=== PATIENT | male | born 1965 | race Caucasian/White ===

== ENCOUNTER 2022-03-08 10:21 | Inpatient (IN) | payer OTHER ==
[~2022-03-08] VITALS: Ht 180.3 cm; Wt 90.9 kg
[2022-03-08 12:47] LABS: COVID AG,FIA SOURCE NASOPHARYNGEAL
[2022-03-08 13:15] LABS: BASOPHILS % (AUTO) 0.8 % (0.0-2.0); HEMATOCRIT 46.9 % (41-53); HEMOGLOBIN 16.1 g/dL (13.5-17.5); LYMPHOCYTES # (AUTO) 1.2 K/uL (1.0-4.8); LYMPHOCYTES % (AUTO) 16.4 % (22.0-44.0); MEAN CORPUSCULAR HEMOGLOBIN 31.2 pg (26.0-34.0); MEAN CORPUSCULAR HGB CONC 34.4 G/dL (31.0-37.0); MEAN CORPUSCULAR VOLUME 91 fL (80-100); MONOCYTES # (AUTO) 0.5 K/uL (0.1-1.0); MONOCYTES % (AUTO) 6.3 % (2.0-9.0); NEUTROPHILS # (AUTO) 5.7 K/uL (1.8-7.7); NEUTROPHILS % (AUTO) 75.5 % (40.0-70.0); PLATELET COUNT (AUTO) 237 K/uL (150-450); RED BLOOD CELL COUNT(AUTO) 5.18 MIL/uL (4.50-5.90); RED CELL DISTRIBUTION WIDTH 13.4 % (11.5-14.5)
[2022-03-08 13:16] LABS: AMPHET/METH SCREEN,URINE POSITIVE (NEGATIVE); BARBITURATE SCREEN, URINE NEGATIVE (NEGATIVE); BENZODIAZEPINES SCREEN,URINE NEGATIVE (NEGATIVE); CANNABINOID SCREEN,URINE POSITIVE (NEGATIVE); COCAINE SCREEN,URINE NEGATIVE (NEGATIVE); METHADONE SCREEN, URINE NEGATIVE (NEGATIVE); OPIATE SCREEN,URINE NEGATIVE (NEGATIVE)
[2022-03-08 13:17] LABS: PHENCYCLIDINE SCREEN,URINE NEGATIVE (NEGATIVE)
[2022-03-08 13:22] LABS: ANION GAP 6 mmol/L (8-16); CALCIUM, TOTAL 9.2 mg/dL (8.8-10.5); CARBON DIOXIDE 31 mmol/L (22-29); CHLORIDE 100 mmol/L (98-107); CREATININE 0.75 mg/dL (0.60-1.30); GLOMERULAR FILTR. RATE CALC > 60 mL/min (>60); GLUCOSE,RANDOM 121 mg/dL (70-110); POTASSIUM 4.7 mmol/L (3.5-5.1); SODIUM SERUM 137 mmol/L (136-145); UREA NITROGEN, BLOOD 10 mg/dL (7-18)
[2022-03-08 13:28] LABS: ALANINE AMINOTRANSFERASE 107 U/L (12-78); ALBUMIN 3.7 g/dL (3.4-5.0); ALKALINE PHOSPHATASE 70 U/L (46-116); ASPARTATE AMINOTRANSFERASE 55 U/L (15-37); BILIRUBIN,TOTAL 0.5 mg/dL (0.1-1.0); TOTAL PROTEIN, SERUM 8.1 g/dL (6.4-8.2)
[2022-03-08] MEDS ORDERED: SODIUM CHLORIDE 0.9% 1,000 ML IV ONE (14:45)
[2022-03-08 18:12] VITALS: BP 148/84
[2022-03-08 20:00] VITALS: BP 156/85
[2022-03-08 20:31] VITALS: BP 156/85
[2022-03-08] MEDS ORDERED: ALBUTEROL SULFATE 2.5 MG/0.5 ML NEB SOLUTION NEB PRN (22:15)
[2022-03-08] MEDS ORDERED: MORPHINE SULFATE 2 MG/ML SYRINGE IVP PRN (22:15)
[2022-03-08] MEDS ORDERED: ONDANSETRON HCL 4 MG/2 ML VIAL IVP PRN (22:15)
[2022-03-08] MEDS ORDERED: HYDROCODONE/ACETAMINOPHEN 5-325 MG TABLET PO PRN (22:15)
[2022-03-08] MEDS ORDERED: MAGNESIUM HYDROXIDE SUSPENSION 30 ML UDCUP PO PRN (22:15)
[2022-03-08] MEDS ORDERED: LORazepam 2 MG TABLET PO PRN (22:15)
[2022-03-08] MEDS ORDERED: ZOLPIDEM TARTRATE 5 MG TABLET PO PRN (22:15)
[2022-03-08] MEDS ORDERED: SODIUM CHLORIDE 0.45% 1,000 ML IV SCH (22:15)
[2022-03-08] MEDS ORDERED: IPRATROPIUM BROMIDE 0.5 MG/2.5 ML NEB SOLUTION NEB PRN (22:15)
[2022-03-08] MEDS ORDERED: BISACODYL 10 MG RECTAL RECTAL SUPPOSITORY PR PRN (22:15)
[2022-03-08 23:53] VITALS: BP 141/85
[2022-03-08] MEDS: HEPARIN SODIUM,PORCINE 5,000 UNITS/ML VIAL SQ SCH (23:54)
[2022-03-09] VITALS: BP 146/85
[2022-03-09] MEDS: 1: MAGNESIUM SULFATE 2 GM, MVI, ADULT NO.1 WITH VIT K 10 ML, THIAMINE 100 MG, FOLIC ACID IV SCH ×15 (00:17→20:43)
[2022-03-09 04:59] VITALS: BP 149/86
[2022-03-09] MEDS ORDERED: LORazepam 2 MG TABLET PO PRN (07:00)
[2022-03-09 08:10] VITALS: BP 143/87
[2022-03-09] MEDS: THIAMINE 100 MG TABLET PO SCH (08:49)
[2022-03-09] MEDS: LORazepam 2 MG TABLET PO SCH ×4 (08:49→20:43)
[2022-03-09] MEDS: DOCUSATE SODIUM 100 MG CAPSULE PO SCH ×2 (08:49→20:43)
[2022-03-09] MEDS: HEPARIN SODIUM,PORCINE 5,000 UNITS/ML VIAL SQ SCH ×3 (08:49→23:56)
[2022-03-09] MEDS: PANTOPRAZOLE SODIUM 40 MG/VIAL IVP SCH (08:50)
[2022-03-09 12:24] VITALS: BP 140/87
[2022-03-09 16:00] VITALS: BP 144/86
[2022-03-09 19:50] VITALS: BP 128/77
[2022-03-10 04:18] VITALS: BP 136/90
[2022-03-10] MEDS: 1: MAGNESIUM SULFATE 2 GM, MVI, ADULT NO.1 WITH VIT K 10 ML, THIAMINE 100 MG, FOLIC ACID IV SCH ×5 (06:43)
[2022-03-10 08:02] VITALS: BP 134/77
[2022-03-10] MEDS: DOCUSATE SODIUM 100 MG CAPSULE PO SCH ×2 (08:26→23:29)
[2022-03-10] MEDS: THIAMINE 100 MG TABLET PO SCH (08:26)
[2022-03-10] MEDS: HEPARIN SODIUM,PORCINE 5,000 UNITS/ML VIAL SQ SCH ×3 (08:26→23:30)
[2022-03-10] MEDS: PANTOPRAZOLE SODIUM 40 MG/VIAL IVP SCH (08:26)
[2022-03-10] MEDS: LORazepam 2 MG TABLET PO SCH (08:27)
[2022-03-10] MEDS: ACETAMINOPHEN 325 MG TABLET PO PRN (13:48)
[2022-03-10 15:31] VITALS: BP 135/85
[2022-03-10 20:44] VITALS: BP 124/82
[2022-03-11 04:46] VITALS: BP 117/75
[2022-03-11] MEDS ORDERED: LORazepam 1 MG TABLET PO PRN (07:00)
[2022-03-11 08:07] VITALS: BP 137/91
[2022-03-11] MEDS ORDERED: LORazepam 1 MG TABLET PO SCH (09:00)
[2022-03-11] MEDS: THIAMINE 100 MG TABLET PO SCH (09:19)
[2022-03-11] MEDS: DOCUSATE SODIUM 100 MG CAPSULE PO SCH ×2 (09:20→20:24)
[2022-03-11] MEDS: PANTOPRAZOLE SODIUM 40 MG/VIAL IVP SCH (09:20)
[2022-03-11] MEDS: HEPARIN SODIUM,PORCINE 5,000 UNITS/ML VIAL SQ SCH ×3 (09:20→23:26)
[2022-03-11] MEDS ORDERED: ACET-784 PO (10:48)
[2022-03-11] MEDS: ACETAMINOPHEN 325 MG TABLET PO PRN ×2 (14:00→20:24)
[2022-03-11 16:06] VITALS: BP 140/96
[2022-03-11 19:35] VITALS: BP 135/92
[2022-03-12 04:09] VITALS: BP 139/86
[2022-03-12] MEDS ORDERED: LORazepam 1 MG TABLET PO PRN (07:00)
== END 2022-03-12 07:00 | DRG 433 ==
LOC: EMS 10:21 → 6S 16:59
PROVIDERS: ADMIT Hospitalist; ATTEND Hospitalist
DX: K70.9 Alcoholic liver disease, unspecified (principal); F10.239 Alcohol dependence with withdrawal, unspecified; Z87.891 Personal history of nicotine dependence; Z20.822 Contact with and (suspected) exposure to COVID-19
CPT/HCPCS: 80053; 85025; 99285; C9113; G0480; J1644; J3411; J3475; J3490; J7030

== ENCOUNTER 2022-03-14 15:45 | Inpatient (IN) | payer OTHER ==
[~2022-03-14] VITALS: Ht 180.3 cm; Wt 85.0 kg
[~2022-03-14 15:45] MED LIST: ACET-784 PO
[2022-03-14] MEDS ORDERED: ONDANSETRON HCL 4 MG/2 ML VIAL IVP ONE (16:15)
[2022-03-14] MEDS ORDERED: SODIUM CHLORIDE 0.9% 1,000 ML IV ONE ×2 (16:15→20:45)
[2022-03-14 16:44] LABS: BASOPHILS % (AUTO) 0.7 % (0.0-2.0); EOSINOPHILS % (AUTO) 1.9 % (1.0-6.0); HEMATOCRIT 46.3 % (41-53); HEMOGLOBIN 15.6 g/dL (13.5-17.5); LYMPHOCYTES # (AUTO) 1.7 K/uL (1.0-4.8); LYMPHOCYTES % (AUTO) 21.9 % (22.0-44.0); MEAN CORPUSCULAR HEMOGLOBIN 30.9 pg (26.0-34.0); MEAN CORPUSCULAR HGB CONC 33.7 G/dL (31.0-37.0); MEAN CORPUSCULAR VOLUME 92 fL (80-100); MONOCYTES # (AUTO) 0.8 K/uL (0.1-1.0); MONOCYTES % (AUTO) 9.5 % (2.0-9.0); NEUTROPHILS # (AUTO) 5.2 K/uL (1.8-7.7); PLATELET COUNT (AUTO) 232 K/uL (150-450); RED BLOOD CELL COUNT(AUTO) 5.05 MIL/uL (4.50-5.90); RED CELL DISTRIBUTION WIDTH 13.4 % (11.5-14.5)
[2022-03-14 16:58] LABS: ANION GAP 8 mmol/L (8-16); CALCIUM, TOTAL 9.2 mg/dL (8.8-10.5); CARBON DIOXIDE 29 mmol/L (22-29); CHLORIDE 101 mmol/L (98-107); CREATININE 0.87 mg/dL (0.60-1.30); GLOMERULAR FILTR. RATE CALC > 60 mL/min (>60); GLUCOSE,RANDOM 99 mg/dL (70-110); SODIUM SERUM 138 mmol/L (136-145); UREA NITROGEN, BLOOD 16 mg/dL (7-18)
[2022-03-14 17:01] LABS: ALANINE AMINOTRANSFERASE 91 U/L (12-78); ALBUMIN 3.4 g/dL (3.4-5.0); ALKALINE PHOSPHATASE 60 U/L (46-116); ASPARTATE AMINOTRANSFERASE 49 U/L (15-37); BILIRUBIN,TOTAL 0.5 mg/dL (0.1-1.0); LIPASE 66 U/L (73-393); TOTAL PROTEIN, SERUM 7.2 g/dL (6.4-8.2)
[2022-03-14] MEDS ORDERED: ONDANSETRON HCL 4 MG/2 ML VIAL IVP PRN ×2 (20:00→20:45)
[2022-03-14] MEDS ORDERED: MORPHINE SULFATE 4 MG/ML SYRINGE IVP PRN (20:00)
[2022-03-14] MEDS ORDERED: ACETAMINOPHEN 325 MG TABLET PO PRN (20:00)
[2022-03-14] MEDS ORDERED: HYDROCODONE/ACETAMINOPHEN 5-325 MG TABLET PO PRN (20:00)
[2022-03-14 20:45] LABS: INR 1.1 (0.9-1.1); PROTHROMBIN TIME 11.4 SEC (9.4-11.6)
[2022-03-14] MEDS ORDERED: MAGNESIUM HYDROXIDE SUSPENSION 30 ML UDCUP PO PRN (20:45)
[2022-03-14 21:02] LABS: COVID AG,FIA SOURCE NASOPHARYNGEAL
[2022-03-14 21:55] VITALS: BP 149/90
[2022-03-14] MEDS: MORPHINE SULFATE 2 MG/ML SYRINGE IVP PRN (22:26)
[2022-03-15 05:08] VITALS: BP 117/80
[2022-03-15 08:00] VITALS: BP 126/78
[2022-03-15] MEDS: MORPHINE SULFATE 2 MG/ML SYRINGE IVP PRN ×3 (09:12→20:03)
[2022-03-15 16:30] VITALS: BP 144/91
[2022-03-15 20:03] VITALS: BP 137/84
[2022-03-15] MEDS: ACETAMINOPHEN 325 MG TABLET PO PRN (22:20)
[2022-03-16 04:51] VITALS: BP 128/78
[2022-03-16] MEDS ORDERED: RINGERS SOLUTION,LACTATED 1,000 ML IV ONE ×3 (06:00→09:00)
[2022-03-16] MEDS ORDERED: BUPIVACAINE 0.25%/EPI 1:200,000/PF 10 ML VIAL ONE (07:34)
[2022-03-16] MEDS ORDERED: SODIUM CHLORIDE 0.9% 1,000 ML ONE (07:35)
[2022-03-16] MEDS ORDERED: VANCOMYCIN HCL 1 GM/VIAL ONE (07:35)
[2022-03-16] MEDS ORDERED: CLINDAMYCIN PHOS 150 MG/ML 4 ML VIAL ONE (07:51)
[2022-03-16] MEDS ORDERED: FentaNYL CITRATE PF 100 MCG/2 ML VIAL IVP PRN (08:15)
[2022-03-16] MEDS ORDERED: HYDROmorphone 2 MG/ML VIAL IVP PRN (08:15)
[2022-03-16] MEDS ORDERED: SUGAMMADEX SODIUM 200 MG/2 ML VIAL IVP ONE (08:46)
[2022-03-16 10:14] VITALS: BP 137/94
[2022-03-16] MEDS: THIAMINE 100 MG TABLET PO SCH (10:14)
[2022-03-16] MEDS: FOLIC ACID 1 MG TABLET PO SCH (10:14)
[2022-03-16] MEDS: MORPHINE SULFATE 2 MG/ML SYRINGE IVP PRN ×3 (10:22→20:43)
[2022-03-16] MEDS ORDERED: KETOROLAC TROMETHAMINE 60 MG/2 ML VIAL IM ONE (12:00)
[2022-03-16] MEDS ORDERED: DEXAMETHASONE SOD PHOS 4 MG/ML VIAL IVP ONE (12:00)
[2022-03-16] MEDS ORDERED: LIDOCAINE/PF 2% 5 ML SYRINGE IVP ONE (12:00)
[2022-03-16] MEDS ORDERED: CeFAZolin 1 GM/DEXTROSE 50 ML BAG IV ONE (12:00)
[2022-03-16] MEDS ORDERED: MIDAZOLAM HCL 2 MG/2 ML VIAL IVP ONE (12:00)
[2022-03-16] MEDS ORDERED: ONDANSETRON HCL 4 MG/2 ML VIAL IVP ONE (12:00)
[2022-03-16] MEDS ORDERED: FentaNYL CITRATE PF 100 MCG/2 ML VIAL IVP ONE (12:00)
[2022-03-16] MEDS ORDERED: PROPOFOL 1% 20 ML VIAL IVP ONE (12:00)
[2022-03-16 15:43] VITALS: BP 132/89
[2022-03-16 19:34] VITALS: BP 136/73
[2022-03-16] MEDS ORDERED: OXYGEN THERAPY IH SCH (20:00)
[2022-03-16] MEDS: ACETAMINOPHEN 325 MG TABLET PO PRN (22:50)
[2022-03-17] MEDS: MORPHINE SULFATE 2 MG/ML SYRINGE IVP PRN (02:00)
[2022-03-17 04:49] VITALS: BP 127/85
[2022-03-17 08:04] VITALS: BP 134/89
[2022-03-17] MEDS: FOLIC ACID 1 MG TABLET PO SCH (08:11)
[2022-03-17] MEDS: THIAMINE 100 MG TABLET PO SCH (08:11)
== END 2022-03-17 12:15 | DRG 352 ==
LOC: EMS 15:47 → 6S 21:20
PROVIDERS: ADMIT Internal Medicine; ATTEND Internal Medicine
PROC: 0JB80ZZ Excision of Abdomen Subcutaneous Tissue and Fascia, Open Approach (ICD-10-PCS; 2022-03-16)
PROC: 0YU50JZ Supplement Right Inguinal Region with Synthetic Substitute, Open Approach (ICD-10-PCS; principal; 2022-03-16 07:45)
DX: K40.30 Unilateral inguinal hernia, with obstruction, without gangrene, not specified as recurrent (principal); D17.6 Benign lipomatous neoplasm of spermatic cord; Z20.822 Contact with and (suspected) exposure to COVID-19; Z88.0 Allergy status to penicillin; Z79.899 Other long term (current) drug therapy; Z87.891 Personal history of nicotine dependence; Z79.1 Long term (current) use of non-steroidal anti-inflammatories (NSAID)
CPT/HCPCS: 74176; 80053; 83690; 85025; 85610; 87081; 99285; G0238; J0690; J1100; J1885; J2250; J2270; J2405; J2704; J3010; J3370; J3490; J7030; J7120; Q9967